=== PATIENT | male | born 1970 ===

== ENCOUNTER 2018-08-10 22:20 | Inpatient (IN) | payer MEDICAID ==
[~2018-08-10] VITALS: Ht 188 cm; Wt 96.1 kg
[2018-08-10] MEDS ORDERED: ASPIRIN 81 MG TABLET CHEW PO ONE (23:30)
[2018-08-10 23:48] LABS: BASOPHILS # (AUTO) 0.06 x10^3/uL (0-0.1); BASOPHILS % (AUTO) 1 % (0-1); EOSINOPHILS # (AUTO) 0.28 x10^3/uL (0-0.4); EOSINOPHILS % (AUTO) 5 % (1-7); LYMPHOCYTES # (AUTO) 1.68 x10^3/uL (1-3.4); LYMPHOCYTES % (AUTO) 31 % (22-44); MD NO; MEAN CORPUSCULAR HGB CONC 31.2 g/dL (33.2-36.2); MEAN CORPUSCULAR VOLUME 83.3 fL (81-97); MEAN PLATELET VOLUME 7.4 fL (7.4-10.4); MONOCYTES # (AUTO) 0.53 x10^3/uL (0.2-0.8); MONOCYTES % (AUTO) 10 % (2-9); NEUTROPHILS % (AUTO) 53 % (42-75); PLATELET COUNT 283 x10^3/uL (130-400); RED BLOOD COUNT 4.61 x10^6/uL (4.38-5.82); RED CELL DISTRIBUTION WIDTH 17.9 % (9.4-14.8)
[2018-08-10 23:49] LABS: ALBUMIN 2.9 g/dL (3.4-5.0); ANION GAP 9 mmol/L (5-15); CALCIUM 8.3 mg/dL (8.5-10.1); CHLORIDE 107 mmol/L (98-107); CREATININE 1.19 mg/dL (0.7-1.3)
[2018-08-10 23:55] LABS: TROPONIN I 0.123 ng/mL (0.000-0.045)
[2018-08-11] VITALS (8 sets, daily range): BP systolic 87–128; BP diastolic 59–87
[2018-08-11] MEDS ORDERED: ASPIRIN 81 MG TABLET CHEW ONE (00:10)
[2018-08-11] MEDS ORDERED: FURO-93 PO (00:12)
--- NOTE | 2018-08-11 00:52 | NUR ---
REPORT GIVEN TO ARTURO SAMUELS
[2018-08-11 00:55] LABS: AMPHETAMINE SCREEN, URINE Positive (Negative); BARBITURATE SCREEN, URINE Negative (Negative); BENZODIAZEPINE SCREEN, URINE Negative (Negative); CANNABINOID SCREEN, URINE Negative (Negative); COCAINE SCREEN, URINE Negative (Negative); METHADONE SCREEN, URINE Negative (Negative); OPIATE SCREEN, URINE Negative (Negative)
[2018-08-11] MEDS ORDERED: HEPARIN 25,000 UNITS/500ML PMX 500 ML IV PRN (02:30)
[2018-08-11] MEDS ORDERED: HEPARIN 5,000 UNITS/ML, 1ML IV ONE (02:30)
[2018-08-11] MEDS ORDERED: NITROGLYCERIN 0.4 MG/SPRAY SL PRN (02:30)
[2018-08-11] MEDS ORDERED: NITROGLYCERIN SINGLE TAB 0.4 MG SL PRN (02:30)
[2018-08-11] MEDS ORDERED: HEPARIN 5,000 UNITS/ML, 1ML IV PRN (02:30)
[2018-08-11] MEDS ORDERED: NITROGLYCERIN 0.4 MG BOTTLE (25 TABS) SL PRN (02:30)
[2018-08-11] MEDS ORDERED: ENOXAPARIN 40 MG/0.4 ML SQ SCH (02:30)
[2018-08-11] MEDS ORDERED: morphine SULFATE 10 MG/ML, 1ML IV PRN (02:30)
[2018-08-11 02:49] LABS: ANION GAP 7 mmol/L (5-15); CALCIUM 8.2 mg/dL (8.5-10.1); CHLORIDE 107 mmol/L (98-107); CHOLESTEROL, TOTAL 96 mg/dL (140-239); CREATININE 1.17 mg/dL (0.7-1.3); TRIGLYCERIDES 151 mg/dL (50-200); VLDL CHOLESTEROL 30 mg/dL (0-25)
[2018-08-11 02:52] LABS: CHOL/HDL RATIO 2.6; HDL CHOL % 39 % (26-37); HDL CHOLESTEROL (DIRECT) 37 mg/dL (40-60); LDL CHOLESTEROL,CALCULATED 29 mg/dL (54-169); LDL/HDL RATIO 0.8 (0.5-3.0); TROPONIN I 0.104 ng/mL (0.000-0.045)
[2018-08-11 05:57] LABS: TROPONIN I 0.089 ng/mL (0.000-0.045)
[2018-08-11] MEDS ORDERED: FUROSEMIDE 40 MG/4 ML IV SCH (07:30)
[2018-08-11] MEDS: SODIUM CHLORIDE FLUSH 10ML SYR IVF SCH ×2 (08:18→21:04)
[2018-08-11] MEDS ORDERED: METOPROLOL TARTRATE 50 MG TABLET PO SCH (09:00)
[2018-08-11] MEDS: ONDANSETRON 2MG/ML, 2ML IVP PRN ×2 (09:35→17:29)
[2018-08-11] MEDS ORDERED: SODIUM CHLORIDE 0.9%, 500ML IVBOLUS ONE ×2 (14:00→18:00)
[2018-08-11 17:22] LABS: TROPONIN I 0.043 ng/mL (0.000-0.045)
[2018-08-11] MEDS ORDERED: ATORVASTATIN 80 MG TABLET PO SCH (21:00)
[2018-08-12 00:22] VITALS: BP 84/60
[2018-08-12 02:09] VITALS: BP 108/77
[2018-08-12] MEDS ORDERED: ASPIRIN 325 MG TABLET EC PO SCH (06:00)
== END 2018-08-12 07:30 | disposition left against medical advice (07) | DRG 280 ==
LOC: ED 23:59 → EDIP 08-11 00:28 → 5SO 08-11 01:11
PROVIDERS: ADMIT Internal Medicine; ATTEND Internal Medicine
DX: I21.4 Non-ST elevation (NSTEMI) myocardial infarction (principal); I50.21 Acute systolic (congestive) heart failure; F15.10 Other stimulant abuse, uncomplicated; F17.200 Nicotine dependence, unspecified, uncomplicated; I25.10 Atherosclerotic heart disease of native coronary artery without angina pectoris; R00.0 Tachycardia, unspecified; Z53.21 Procedure and treatment not carried out due to patient leaving prior to being seen by health care provider; N18.9 Chronic kidney disease, unspecified; Z79.82 Long term (current) use of aspirin; Z82.5 Family history of asthma and other chronic lower respiratory diseases
CPT/HCPCS: 36415; 71046; 80048; 80061; 80307; 82040; 83880; 84484; 85025; 85520; 93005; 93306; 99285; G0378; J1644; J1940; J2405; J7040